=== PATIENT | female | born 1960 | race Caucasian/White ===

== ENCOUNTER 2025-01-04 14:17 | Emergency (ER) | payer SELFPAY ==
[2025-01-04] MEDS ORDERED: Acetaminophen 500 MG TAB ONE (14:46)
[2025-01-04 16:08] LABS: #Basophils 0.03 10x3/uL (0.0-0.2); #Eosinophils 0.09 10x3/uL (0.0-0.5); #Monocytes 0.53 10x3/uL (0.0-1.1); #Neutrophils 3.14 10x3/uL (1.5-8.4); %Basophils 0.6 % (0.0-2.0); %Eosinophils 1.7 % (0.0-6.0); %Lymphocytes 29.9 % (18.0-47.0); %Monocytes 9.8 % (0.0-10.0); %Neutrophils 58.0 % (40.0-75.0); Hematocrit 40.1 % (34.9-44.5); Hemoglobin 13.5 g/dL (12.0-15.5); Mean Corpuscular Hemoglobin 30.2 pg (27.0-33.0); Mean Corpuscular Volume 89.7 fL (81.6-98.3); Platelet Count 197 10x3/uL (150-450); Red Blood Cell (RBC) Count 4.47 10x6/uL (3.90-5.03); White Blood Cell (WBC) Count 5.41 10x3/uL (3.5-10.5)
[2025-01-04 16:21] LABS: Glucose, Urine (Dipstick) Normal (Negative); Leukocyte 25 (Negative); Protein, Urine (Dipstick) 30 mg/dl (Neg-Trace); Specific Gravity, Urine 1.030 (1.005-1.030)
[2025-01-04 16:31] LABS: Bacteria/HPF 1+ HPF (None Seen); CAUTI Indications for Culture Alt mental st,lethar; Mucous/LPF 2+ LPF (<2+)
[2025-01-04 16:32] LABS: Urine Culture Reflex No No
[2025-01-04 16:32] LABS: ALT (SGPT) 12 U/L (Less than 34); AST (SGOT) 37 U/L (11-34); Albumin 3.9 g/dL (3.1-4.5); Alkaline Phosphatase 93 U/L (40-110); Anion Gap 12 mmol/L (10-20); BUN (Urea Nitrogen) 19 mg/dL (9.8-20.1); Bilirubin, Total 0.2 mg/dL (0.3-1.2); Calc. Creatinine Clearance 0 mL/min (70-130); Calcium 9.3 mg/dL (7.8-10.44); Carbon Dioxide 28 mmol/L (23-31); Chloride 103 mmol/L (98-107); Globulin 3.7 g/dL (2.4-3.5); Glucose 85 mg/dL (80-115); Potassium 3.8 mmol/L (3.5-5.1); Sodium 139 mmol/L (136-145)
== END 2025-01-04 16:56 | disposition home or self-care (01) ==
LOC: CSHERS 14:17
DX: U07.1 COVID-19 (principal); N39.0 Urinary tract infection, site not specified; E03.9 Hypothyroidism, unspecified; Z79.890 Hormone replacement therapy
CPT/HCPCS: 36415; 71045; 80053; 81001; 84443; 85025; 87428